=== PATIENT | female | born 1985 | race Caucasian/White ===

== ENCOUNTER 2022-08-21 09:19 | Emergency (ER) | payer OTHER ==
[2022-08-21] MEDS ORDERED: HYDROmorphone 0.5 MG/0.5 ML Syringe IVPUSH ONE ×2 (11:12→19:39)
[2022-08-21] MEDS ORDERED: Ondansetron 4 MG/2 ML SDV IVPUSH ONE ×2 (11:12→16:31)
[2022-08-21] MEDS ORDERED: Sodium Chloride 0.9% 1,000 ML IV ONE ×4 (11:12→23:03)
[2022-08-21 11:54] LABS: ESTIMATED GFR 83 mL/min (>60)
[2022-08-21] MEDS: Sodium Chloride 0.9% 10 ML Syringe FLUSH PRN (12:36)
[2022-08-21 15:29] LABS: CORONAVIRUS COVID-19 NAA NEGATIVE (NEGATIVE)
[2022-08-21] MEDS ORDERED: Piperacillin/Tazobactam 4.5 GM in Sodium Chloride 0.9% 100 ML IV ONE (16:59)
[2022-08-21] MEDS: Piperacillin/Tazobactam 4.5 GM in Sodium Chloride 0.9% 100 ML IV SCH (23:00)
[2022-08-22] MEDS: Piperacillin/Tazobactam 4.5 GM in Sodium Chloride 0.9% 100 ML IV SCH ×3 (06:59→23:13)
[2022-08-22] MEDS: HYDROmorphone 0.5 MG/0.5 ML Syringe IVPUSH PRN ×3 (07:34→21:19)
[2022-08-22] MEDS: Ondansetron 4 MG/2 ML SDV IVPUSH PRN ×3 (07:35→21:19)
[2022-08-22] MEDS ORDERED: Sodium Chloride 0.9% 1,000 ML IV ONE (14:15)
[2022-08-22] MEDS: Sodium Chloride 0.9% 10 ML Syringe FLUSH PRN (14:39)
[2022-08-23] MEDS ORDERED: Sodium Chloride 0.9% 1,000 ML IV SCH (07:00)
[2022-08-23] MEDS: Ondansetron 4 MG/2 ML SDV IVPUSH PRN (08:47)
[2022-08-23] MEDS: HYDROmorphone 0.5 MG/0.5 ML Syringe IVPUSH PRN (08:48)
[2022-08-23] MEDS: Piperacillin/Tazobactam 4.5 GM in Sodium Chloride 0.9% 100 ML IV SCH (08:50)
== END 2022-08-23 12:04 ==
LOC: JD.ED 09:19
DX: K80.31 Calculus of bile duct with cholangitis, unspecified, with obstruction (principal); Z88.8 Allergy status to other drugs, medicaments and biological substances; Z20.822 Contact with and (suspected) exposure to COVID-19
CPT/HCPCS: 0241U; 36415; 80053; 82977; 83690; 84702; 85025; 86140; 96361; 96365; 96366; 96375; 96376; 99285; J1170; J2405; J2543; J3490; J7030; 76705; 76705-26